=== PATIENT | female | born 1965 | race Caucasian/White ===

== ENCOUNTER 2018-10-17 10:00 | Inpatient (IN) | payer OTHER ==
[2018-10-21 14:29] VITALS: BMI 32.8
[2018-10-24] MEDS ORDERED: GABAPENTIN 300 MG CAPSULE (FP) PO STA (06:32)
--- NOTE | 2018-10-24 07:04 | HP ---
History & Physical Update - History History: No Change - Physical Physical: No Change - Assessment Assessment: No Change - Plan Plan: No Change (Initial H&P completed on 10/14/18 by Art Mckee DO. No new complaints or medications since. Here today for elective L5/S1 TLIF secondary to spondylolithesis at same level.)
[2018-10-24] MEDS ORDERED: THROMBIN (RECOMBINANT) 5,000 UNIT VIAL TP ONE (07:14)
[2018-10-24] MEDS ORDERED: LIDOCAINE 1%/EPI 1:100000 (20 ML MULTI DOSE VIAL) ONE (07:14)
[2018-10-24] MEDS ORDERED: CEFAZOLIN 2 GM/D5W 2 GM/50 ML ML IVPB ONE (07:45)
[2018-10-24] MEDS ORDERED: BUPIVACAINE LIPOSOME/PF (EXPAREL) 266 MG/20 ML VIAL ONE (08:24)
[2018-10-24] MEDS ORDERED: BUPIVACAINE HCL/PF 2.5 MG/ML - 30 ML VIAL IJ ONE (08:24)
[2018-10-24] MEDS ORDERED: MIDAZOLAM HCL 2 MG/2 ML SINGLE DOSE VIAL ONE (08:29)
[2018-10-24] MEDS ORDERED: DEXMEDETOMIDINE HCL 200 MCG/2 ML ML IVPB ONE (08:59)
[2018-10-24] MEDS ORDERED: LIDOCAINE 1%/EPI 1:100000 (20 ML MULTI DOSE VIAL) IJ ONE (09:27)
[2018-10-24] MEDS ORDERED: THROMBIN (BOVINE) 5,000 UNIT VIAL TP ONE (09:56)
[2018-10-24] MEDS ORDERED: GELATIN SPONGE,ABSORBABLE 1 GM PACKET TP ONE (09:56)
--- NOTE | 2018-10-24 11:07 | OP ---
Operative Note - Note: Operative Date: 10/24/18 Pre-Operative Diagnosis: L5/S1 spondylolithesis with LLE radiculopathy Operation: L5/S1 TLIF, allograft implant, neuromonitoring Post-Operative Diagnosis: Same as Pre-op Surgeon: Abdoulaye Haro Quality Control Auditor: Pancho Kim Anesthesiologist/CARPORT ERECTOR: Roman Quintanilla Anesthesia: Spinal Specimens Removed: L5/S1 disc Estimated Blood Loss (mls): 25 Fluid Volume Replaced (mls): 1,000 Operative Report Dictated: Yes
[2018-10-24] MEDS ORDERED: oxyCODONE HCL 5 MG TABLET PO PRN ×4 (11:08→11:10)
--- NOTE | 2018-10-24 11:08 | SURG ---
Surgery Cost Accounting Analyst Note Cost Accounting Analyst: Pancho Kim PA-C Date of Service: 10/24/18 Diagnosis: L5/S1 spondylolithesis with LLE radiculopathy Procedure: Transforaminal lumbar interbody fusion L5/S1, decompression, instrumentation, allograft implant, neuromonitoring I was present for the entirety of the operative procedure. For further detail, please refer to operative report. Visit type - Case Type Case Type: Scheduled - New patient This patient is new to me today: Yes Date on this admission: 10/24/18
[2018-10-24] MEDS ORDERED: PROMETHAZINE HCL 25 MG/1 ML VIAL IVPB PRN (11:10)
[2018-10-24] MEDS ORDERED: ONDANSETRON 4 MG/2 ML VIAL IVPUSH PRN (11:10)
[2018-10-24] MEDS ORDERED: DOXYLAMINE SUCCINATE 25 MG PO PRN (11:13)
[2018-10-24] MEDS ORDERED: ALBUTEROL SO4 8 GM HFA INHALER IH PRN (11:13)
[2018-10-24] MEDS ORDERED: ACETAMINOPHEN 325 MG TABLET (FP) PO SCH (11:15)
[2018-10-24] MEDS ORDERED: LACTATED RINGERS SOLUTION 1,000 ML IV SCH (11:15)
[2018-10-24] MEDS ORDERED: ONDANSETRON 4 MG/2 ML VIAL IVPUSH ONE (12:00)
[2018-10-24] MEDS ORDERED: ACETAMINOPHEN 325 MG TABLET (FP) PO ONE (12:05)
[2018-10-24 13:38] VITALS: TEMP 97.7
[2018-10-24] MEDS ORDERED: GABAPENTIN 300 MG CAPSULE (FP) PO SCH ×2 (14:00→22:00)
[2018-10-24] MEDS ORDERED: oxyCODONE HCL 5 MG TABLET ONE (14:09)
[2018-10-24] MEDS ORDERED: CEFAZOLIN 1 GM/D5W 1 GM/50 ML BAG ONE (14:38)
[2018-10-24 15:29] VITALS: BP 123/66; PULSE 86
[2018-10-24] MEDS ORDERED: CEFAZOLIN 1 GM/D5W 1 GM/50 ML BAG IVPB SCH (16:00)
[2018-10-24] MEDS ORDERED: INSULIN SLIDING SCALE (NOVOLOG) 1 VIAL SQ SCH (16:30)
[2018-10-24] MEDS ORDERED: GLIMEPIRIDE 2 MG TABLET (FP) PO SCH (16:30)
[2018-10-24] MEDS ORDERED: INSULIN (LEVEMIR) 100 UNITS/ML UNITS SQ SCH (22:00)
[2018-10-24] MEDS ORDERED: diazePAM 2 MG TABLET PO SCH (22:00)
[2018-10-24] MEDS ORDERED: ATORVASTATIN CA 20 MG TABLET (FP) PO SCH (22:00)
[2018-10-24] MEDS ORDERED: ESCITALOPRAM OXALATE 20 MG TABLET (FP) PO SCH (22:00)
--- NOTE | 2018-11-19 20:04 | OP ---
DATE OF OPERATION: 10/24/2018 PREOPERATIVE DIAGNOSIS: L5-S1 spondylolisthesis. POSTOPERATIVE DIAGNOSIS: L5-S1 spondylolisthesis. PROCEDURE PERFORMED: 1. Transforaminal lumbar interbody fusion, L5-S1. 2. Placement of instrumentation, L5-S1. 3. Placement of prosthetic cage. SURGEON: Abdoulaye Haro MD STEAM TRAP WORKER: JOEL Morton ESTIMATED BLOOD LOSS: 25 mL. IV FLUIDS: Per Anesthesia. ANESTHESIA: Spinal/TLIF block. COMPLICATIONS: There were none. DISPOSITION: Patient brought to the PACU in stable condition. INDICATION FOR SURGERY: The patient is a 53-year-old female who has been suffering from pain from her back down her left leg. X-rays and MRI were completed, which show that she has spinal stenosis at L5-S1 secondary to spondylolisthesis. She had gone through an exhaustive course of treatment for this, which included medications, physical therapy as well as injections. Unfortunately, her pain continued to persist despite all this. At this point, risks, benefits, and alternatives were discussed and the patient consented to surgery. OPERATIVE NOTE: The patient was brought to the operating room by anesthesia staff. After appropriate patient identification was performed, spinal anesthesia was given. A TLIF block was also given. Patient was able to position herself prone onto the OR table, with all areas of bony prominences well padded at this time. The C-arm was brought in. The L5-S1 levels were marked off. Then 10 mL of lidocaine with epinephrine was injected into her back. At this time her back was prepped and draped in a sterile manner. At this point, timeout was completed. An incision was made bilaterally over the L5-S1 pedicle. Dissection was carried down to the fascia. The fascia was split at this time. Under C-arm guidance, trocars were advanced to both the L5 and S1 pedicles. Through the trocars, a wire was inserted. Over the wire, tap was performed and the screws were inserted. On the left-hand side, retractor blades were set up to expose the L5-S1 facet joint. The facet joint was removed. The disk was entered. Using a series of pituitaries, Kerrisons and curettes, a diskectomy was completed. The endplates were decorticated at this time. Bone graft was laid down and cage filled with bone graft was placed in. TLIF pins were placed over the screws. A ilan was measured and placed in. Caps and final tightening and compression was applied. On the right-hand side, a ilan was measured and placed in. Caps and final tightening was provided. All extra instrumentation was removed. AP and lateral x-rays confirmed the instrumentation to be in good position. The fascia was closed with a number 1 Vicryl suture. The subcutaneous tissue was closed with 2-0 Vicryl suture. Skin was closed with 3-0 Monocryl suture. Dermabond was applied, Steri-Strips were applied, sterile dressing applied. Patient was placed supine on OR bed and brought to the PACU in stable condition. Madan RONQUILLO/[id number]
== END 2018-10-24 15:30 | disposition home or self-care (01) | DRG 460 ==
LOC: FM/S 10-24 06:12
PROVIDERS: ADMIT Orthopaedic Surgery Orthopaedic Surgery of the Spine; ATTEND Orthopaedic Surgery Orthopaedic Surgery of the Spine
PROC: 0SB40ZZ Excision of Lumbosacral Disc, Open Approach (ICD-10-PCS; 2018-10-24)
PROC: 4A10X4G Monitoring of Central Nervous Electrical Activity, Intraoperative, External Approach (ICD-10-PCS; 2018-10-24)
PROC: 0SG30AJ Fusion of Lumbosacral Joint with Interbody Fusion Device, Posterior Approach, Anterior Column, Open Approach (ICD-10-PCS; principal; 2018-10-24 08:30)
DX: M43.17 Spondylolisthesis, lumbosacral region (principal); M54.17 Radiculopathy, lumbosacral region; J44.9 Chronic obstructive pulmonary disease, unspecified; G89.29 Other chronic pain
CPT/HCPCS: 72100-TC-FY; 76001-TC-FY; 82962; 94760